=== PATIENT | female | born 1935 | race African-American/Black ===

== ENCOUNTER → 2020-06-06 | Day surgery (SDC) | payer MEDICARE, OTHER ==
[2020-06-06] VITALS (8 sets, daily range): BP systolic 86–117; BP diastolic 56–84
[~2020-06-06] VITALS: Ht 156.5 cm; Wt 52.2 kg
[~2020-06-06] MED LIST: ACETAMINOP160 MG/5 M ORAL; ALPRAZOLAM0.5 MG GT; ARTIFICIAL TEAR15 ML BOTH EYES; ASPIR 8181 MG GT; ASPIRIN81 MG GT; BISACODYL10 M1 RC; CHLORASEPTIC1 SPRAY ORAL; COLACE100 MG/10 GT; COZAAR25 MG GT; DOCUSATE SODIU100 MG GT; DONEPEZIL HCL10 MG GT; FOLIC ACID1 MG GT; FOLIC ACID1 MG ORAL; GENTEAL GEL DRO25 ML OPHTHALM; HYDRALAZINE HCL25 M1 GT; LANTUS SOL100 UNIT/1 SUBQ; LR 1000ml 1,000 ML IVLG SCH; LR 1000ml ONE; Lidocaine 1% MPF 10mg/ml 5ml ONE; MILK OF MA2400 MG/10 GT; MILK OF MA400 MG/51 GT; MOM30 ML GT; MULTI-DELYN237 ML GT; NAMENDA10 MG GT; NORCO 5-325 TA1 EACH ORAL; PROZAC10 MG GT; QUETIAPINE FUM100 MG GT; RANITIDINE HCL150 MG ORAL; ROBITUSSIN DM5 ML GT; TYLENOL650 MG/20. GT; VITAMIN D31000 UNI2 GT; VITAMIN D31000 UNI3 GT; ZOFRAN4 M3 GT; [UNRECOGNIZED DRUG - CODE] GT; cepacol ORAL; dulcolax suppository RECTAL
--- NOTE | 2020-06-06 10:30 | Pre-Procedure Note/Attestation ---
Pre-Procedure Note/Attestation Complete Prior to Procedure Planned Procedure: not applicable Procedure Narrative: EGD with GT change Indications for Procedure Pre-Operative Diagnosis: dysphagia Attestation I attest that I discussed the nature of the procedure; its benefits; risks and complications; and alternatives (and the risks and benefits of such alternatives), prior to the procedure, with the patient (or the patient's legal counter sales representative). I attest that, if there was a reasonable possibility of needing a blood transfusion, the patient (or the patient's legal counter sales representative) was given the [facility] standardized written summary, pursuant to the Noe Lloyd Blood Safety Act ([place] Health and Safety Code # 1645, as amended). I attest that I re-evaluated the patient just prior to the surgery and that there has been no change in the patient's H&P, except as documented below: Kunal Ny MD Jun 06, 2020 10:30
--- NOTE | 2020-06-06 10:30 | Short Stay Surgery H&P ---
History of Present Illness History of Present Illness Chief Complaint see H&P HPI Lilo Avila is a 84 year old female who was admitted on for Abdominal Pain Patient History Allergies: Coded Allergies: No Known Allergies (Unverified , 05/22/19) Medication History Scheduled Aspirin* (Aspirin*), 81 MG GT DAILY, (Reported) Docusate Sodium* (Docusate Sodium*), 100 MG GT BID, (Reported) Insulin Glargine (Lantus), 10 UNITS SUBQ BEDTIME, (Reported) Losartan Potassium* (Cozaar*), 25 MG GT DAILY, (Reported) Magnesium Hydroxide* (Milk Of Magnesia*), 30 ML GT DAILY, (Reported) Multivitamin Liquid* (Multi-Delyn*), 5 ML GT DAILY, (Reported) Scheduled PRN Acetaminophen 160MG/5ML* (Acetaminophen*), 5 ML ORAL THREE TIMES A DAY PRN for Fever/Headache/Mild Pain, (Reported) Ondansetron* (Zofran*), 4 MG GT Q6H PRN for Nausea & Vomiting, (Reported) [dulcolax suppository], 10 MG RECTAL DAILY PRN for Constipation, (Reported) Discontinued Medications Acetaminophen (Acetaminophen), 650 MG GT Q6H PRN for Prn Headache/Temp > 101, (Reported) Discontinued Reason: MD discontinued med Aspirin* (Aspir 81*), 81 MG GT DAILY, (Reported) Discontinued Reason: Pt stopped taking med Cholecalciferol (Vitamin D3) (Vitamin D3), 1,000 UNIT GT DAILY, (Reported) Discontinued Reason: Pt stopped taking med Docusate Sodium (Docusate Sodium), 100 MG GT TWICE A DAY, (Reported) Discontinued Reason: Pt stopped taking med Insulin Glargine (Lantus), 8 UNITS SUBQ BEDTIME, (Reported) Discontinued Reason: Pt stopped taking med Losartan Potassium* (Cozaar*), 25 MG GT DAILY, (Reported) Discontinued Reason: Pt stopped taking med Magnesium Hydroxide* (Milk Of Magnesia*), 30 ML GT DAILY, (Reported) Discontinued Reason: Pt stopped taking med Multivitamin Liquid* (Multi-Delyn*), 5 ML GT DAILY, (Reported) Discontinued Reason: Pt stopped taking med Physical Exam Vital Signs Last Vital Signs Date Time Temp Pulse Resp B/P (MAP) Pulse Ox O2 Delivery O2 Flow Rate FiO2 06/06/20 09:15 Room Air 06/06/20 09:10 97.0 108 20 117/84 97 Labs Laboratory Tests Test 06/06/20 09:14 POC Whole Blood Glucose Pending Plan Attestation Are the patient's medical conditions optimized for surgery? Kunal Ny MD Jun 06, 2020 10:30
--- NOTE | 2020-06-06 10:53 | Anethesia Preoperative Eval ---
Anesthesia Pre-op PMH/ROS General Date of Evaluation: Jun 06, 2020 Time of Evaluation: 10:25 Anesthesiologist: sylvia ASA Score: ASA 4 Mallampati Score Class I : Soft palate, uvula, fauces, pillars visible Class II: Soft palate, uvula, fauces visible Class III: Soft palate, base of uvula visible Class IV: Only hard plate visible Mallampati Classification: Class III Surgeon: Naveen Diagnosis: malfuction of G Tube Surgical Procedure: EGD/ Gtube replacement Anesthesia History: none Family History: no anesthesia problems Allergies: Coded Allergies: No Known Allergies (Unverified , 05/22/19) Patient NPO?: Yes NPO Date: Jun 06, 2020 NPO Time: 00:01 Past Medical History Cardiovascular: Denies: HTN, CAD, [place], valve dz, arrhythmia, other Pulmonary: Denies: asthma, COPD, BASIM, other Gastrointestinal/Genitourinary: Denies: GERD, CRI, ESRD, other Neurologic/Psychiatric: Reports: dementia; Denies: CVA, depression/anxiety, TIA, other Endocrine: Denies: DM, hypothyroidism, steroids, other HEENT: Denies: cataract (L), cataract (R), glaucoma, NOORVIK (L), NOORVIK (R), other Hematology/Immune: Denies: anemia, DVT, bleeding disorder, other Musculoskeletal/Integumentary: Denies: OA, RA, DJD, DDD, edema, other PMH Narrative: dysphagia, malfuction of G tube [facility] Anesthesia Pre-op Phys. Exam Physician Exam Last Vital Signs Date Time Temp Pulse Resp B/P (MAP) Pulse Ox O2 Delivery O2 Flow Rate FiO2 06/06/20 09:15 Room Air 06/06/20 09:10 97.0 108 20 117/84 97 Constitutional: other - weakness Neurologic: other - dementia; contracted Cardiovascular: RRR Respiratory: CTA Gastrointestinal: S/NT/ND Airway Exam Mallampati Classification 3 Mallampati Score: Class III MO: limited ROM: limited Teeth: broken Dentures: no upper, no lower Anesthesia Pre-op A/P Labs Chemistry Test 06/06/20 09:14 POC Whole Blood Glucose Pending Studies Pre-op Studies: EKG - ST Risk Assessment & Plan Assessment: covid neg Plan: mac Status Change Before Surgery: No Pre-Antibiotics Drug: declined Tarrillion,Mayelin 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
--- NOTE | 2020-06-06 10:54 | Immediate Post-Op Evaluation ---
Immediate Post-Op Evalulation Immediate Post-Op Evalulation Procedure: Gtube replacement Date of Evaluation: Jun 06, 2020 Time of Evaluation: 10:50 IV Fluids: 500 Blood Pressure Systolic: 112 Blood Pressure Diastolic: 76 Pulse Rate: 100 Respiratory Rate: 14 O2 Sat by Pulse Oximetry: 100 Temperature (Fahrenheit): 97.4 Nausea: No Vomiting: No Complications stable Patient Status: reacts, patent Hydration Status: adequate Drug: declined Mayelin Rodgers CRNA Jun 06, 2020 10:54
--- NOTE | 2020-06-06 11:34 | 48 Hour Post Anesthesia Eval ---
Post Anesthesia Evaluation Procedure: Gtube replacement Date of Evaluation: Jun 06, 2020 Time of Evaluation: 11:33 Blood Pressure Systolic: 99 0: 76 Pulse Rate: 104 Respiratory Rate: 14 O2 Sat by Pulse Oximetry: 98 Airway: patent Nausea: No Vomiting: No Hydration Status: adequate Cardiopulmonary Status: stable Mental Status/LOC: patient returned to baseline Follow-up Care/Observations: na Post-Anesthesia Complications: none Follow-up care needed: N/A Mayelin Rodgers CRNA Jun 06, 2020 11:34
--- NOTE | 2020-06-07 01:45 | Operative Note - Dictated ---
DATE OF OPERATION: 06/06/2020 GASTROENTEROLOGY PROCEDURE PROCEDURE: Upper gastrointestinal endoscopy with biopsy and gastrostomy tube replacement. SURGEON: Kunal Ny MD ANESTHESIA: Please see the separate anesthesiologist notes for details. PRE-ENDOSCOPIC DIAGNOSES: 1. Dysphagia. 2. Dysfunctional gastrostomy tube. POST-ENDOSCOPIC DIAGNOSES: 1. Mild erosive gastritis, status post biopsy at the antrum. 2. Submucosal nodule versus possible vein in the distal esophagus. 3. Status post gastrostomy tube exchange. DESCRIPTION OF PROCEDURE: The procedure, its risks, indications, alternatives, and possible complications were explained to the patient's durable [id number] and informed consent was obtained. Patient was then sedated in the supine position and a diagnostic upper endoscope was introduced through oropharynx and advanced to the duodenum without difficulty. The endoscope was then gradually withdrawn and mucosa examined carefully. Examination of the upper gastrointestinal mucosa revealed two small submucosal nodules seen in the distal esophagus measuring approximately 4 or 5 mm each. It was not clear whether these represent venous dilations or submucosal nodules and therefore they were not biopsied. The antrum showed erosive gastritis, which was biopsied. The gastrostomy was removed under direct vision and replaced with another gastrostomy catheter. The patient was left to recovery in good condition. COMPLICATIONS: None. ASSESSMENT: This patient's gastrostomy had been replaced with a new one and gastrostomy care should be continued. The significance of the submucosal nodule in the distal esophagus was not clear and . Discussion will be held with the power of talent development specialist respect to possible endoscopic ultrasound if more aggressive workup . RECOMMENDATIONS: 1. Resume tube feeding. 2. Gastrostomy tube care. 3. Discussion with power of talent development specialist regarding endoscopic findings. 4. Check and consider treatment if Helicobacter pylori is positive. Thank you for asking me to participate in the care of this patient. Kunal Ny M.D. DR: CASEY JOB#: [id number] CC: MD KUNAL Olmos M.D. ; FAX#: [phone]
== END | disposition home or self-care (01) ==
LOC: GAS 08:21
DX: R13.10 Dysphagia, unspecified (principal); K94.29 Other complications of gastrostomy; K29.70 Gastritis, unspecified, without bleeding; B96.81 Helicobacter pylori [H. pylori] as the cause of diseases classified elsewhere; Z79.82 Long term (current) use of aspirin; Z79.899 Other long term (current) drug therapy; F03.90 Unspecified dementia, unspecified severity, without behavioral disturbance, psychotic disturbance, mood disturbance, and anxiety
CPT/HCPCS: 43239; 43246; 82962; 94003; J2704; J7120; 94150